=== PATIENT | female | born 1945 | race Asian ===

== ENCOUNTER 2020-09-03 19:01 | Emergency (ER) | payer MEDICARE, OTHER ==
[~2020-09-03] VITALS: Ht 162.6 cm; Wt 72.7 kg
[~2020-09-03 19:01] MED LIST: AMLO-258 PO; ASPI-728 PO; LOSA1TAB12 PO; METO25XL PO
[2020-09-03 20:12] LABS: BASOPHILS % (AUTO) 0.3 % (0.0-2.0); EOSINOPHILS % (AUTO) 2.1 % (1.0-6.0); HEMATOCRIT 37.8 % (36-46); HEMOGLOBIN 12.3 g/dL (12.0-16.0); LYMPHOCYTES # (AUTO) 2.1 K/uL (1.0-4.8); LYMPHOCYTES % (AUTO) 27.9 % (22.0-44.0); MEAN CORPUSCULAR HEMOGLOBIN 27.7 pg (26.0-34.0); MEAN CORPUSCULAR HGB CONC 32.6 G/dL (31.0-37.0); MEAN CORPUSCULAR VOLUME 85 fL (80-100); MONOCYTES # (AUTO) 0.4 K/uL (0.1-1.0); MONOCYTES % (AUTO) 4.9 % (2.0-9.0); NEUTROPHILS % (AUTO) 64.8 % (40.0-70.0); PLATELET COUNT (AUTO) 261 K/uL (150-450); RED BLOOD CELL COUNT(AUTO) 4.44 MIL/uL (4.00-5.20); RED CELL DISTRIBUTION WIDTH 13.2 % (11.5-14.5)
[2020-09-03 20:22] LABS: CALCIUM, TOTAL 8.8 mg/dL (8.8-10.5); CREATININE 1.24 mg/dL (0.60-1.30); POTASSIUM 4.2 mmol/L (3.5-5.1)
[2020-09-03 20:28] LABS: D-DIMER 0.4 mg/L FEU (0.00-0.50); PROTHROMBIN TIME 10.2 SEC (9.4-11.6)
[2020-09-03 20:46] LABS: ALBUMIN 3.9 g/dL (3.4-5.0); BILIRUBIN,TOTAL 0.3 mg/dL (0.1-1.0)
[2020-09-03 20:53] LABS: COVID AG,FIA SOURCE NASOPHARYNGEAL
[2020-09-03] MEDS ORDERED: HydrALAZINE HCL 25 MG TABLET PO ONE (21:00)
[2020-09-05 14:21] VITALS: BP 160/88
== END 2020-09-04 00:37 | disposition home or self-care (01) ==
LOC: EMS 19:01
DX: I10 Essential (primary) hypertension (principal); R07.9 Chest pain, unspecified; R06.02 Shortness of breath; R74.8 Abnormal levels of other serum enzymes; E11.9 Type 2 diabetes mellitus without complications; E78.00 Pure hypercholesterolemia, unspecified; Z20.822 Contact with and (suspected) exposure to COVID-19
CPT/HCPCS: 85379; 87426; 93005; 36415-L1; 36415-TC; 71045-TC

== ENCOUNTER → 2024-05-18 | Outpatient (CLI) | payer MEDICARE, OTHER ==
[~2024-05-18] MED LIST changes: +ALLO300T2 PO; -AMLO-258 PO; +ASPI-1450 PO; -ASPI-728 PO; +AZIT500T4 PO; +CARV3 PO; +CEFD300C18 PO; +GLIM-8 PO; +HYDR50TA37 PO; +LISI20TA24 PO; -LOSA1TAB12 PO; +METF-446 PO; -METO25XL PO; +PIOG30TA70 PO; +PRAV10TA39 PO; +REGADENOSON 0.4 MG/5 ML PF SYRINGE IVP ONE; +SESTAMIBI TC99M/UD ISOTOPE 1 EA INJ INJ ONE
[2024-05-18] MEDS: REGADENOSON 0.4 MG/5 ML PF SYRINGE IVP ONE (10:57)
== END | disposition home or self-care (01) ==
LOC: CARDMN 09:01
PROVIDERS: ATTEND Internal Medicine Cardiovascular Disease
DX: I25.9 Chronic ischemic heart disease, unspecified (principal)
CPT/HCPCS: 78452; A9500; J2785